=== PATIENT | male | born 1970 | race Caucasian/White ===

== ENCOUNTER 2025-01-20 09:47 | Day surgery (SDC) | payer BC ==
[~2025-01-20] VITALS: Ht 182.9 cm; Wt 105.1 kg
[~2025-01-20 09:47] MED LIST: LISI1TAB53 PO; Metoprolol PO; SULF500T PO
[2025-01-20] MEDS ORDERED: METO100T7 PO (10:12)
[2025-01-20] MEDS ORDERED: FENO145T26 PO (10:12)
[2025-01-20] MEDS ORDERED: HYDR25TA5 PO (10:12)
[2025-01-20] MEDS ORDERED: fentaNYL/PF 50MCG/1 ML 2ML syringe IV ONE (10:15)
[2025-01-20] MEDS ORDERED: MIDAZolam 1mg/ml 10ml vial IV ONE (10:15)
[2025-01-20] MEDS ORDERED: normal saline 1000ml 1,000 ML IV SCH (10:15)
[2025-01-20 10:26] VITALS: BP 114/69; PULSE 73; RESP 15; TEMP 98.1; O2SAT 95
[2025-01-20] MEDS ORDERED: midazolam 1 mg/ML 2ml injection ONE ×2 (11:16→12:08)
[2025-01-20] MEDS ORDERED: fentaNYL/PF 50MCG/1 ML 2ML syringe ONE (11:16)
[2025-01-20 11:30] VITALS: RESP 16; O2SAT 97
[2025-01-20 12:26] VITALS: BP 124/70; PULSE 73; RESP 12; O2SAT 97
[2025-01-20 12:30] VITALS: BP 130/81; PULSE 72; RESP 17; O2SAT 95
[2025-01-20 12:45] VITALS: BP 122/71; PULSE 71; RESP 14; O2SAT 96
[2025-01-20 12:58] VITALS: BP 122/75; PULSE 69; RESP 14; O2SAT 96
--- NOTE | 2025-01-20 18:57 | CARDIOLOGY REPORT ---
APPROVED REPORT EXAM: Focused, limited transesophageal echocardiogram with color flow Doppler. Saline study for shunt. 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 flow nearAV ? VSDvsECC AI LEFT VENTRICLE Normal LV size and function. Mild concentric hypertrophy. No membraneous or muscular VSD detected by 2D, color or saline study. LVEF is 60%. RIGHT VENTRICLE RV is normal size and function. ATRIA Left atrium appears ? mildly dilated. Saline study was performed with 2 IV injections of 10 ccs of agitated normal saline at rest. Negative saline study for right to left flow. AORTIC VALVE Trileaflet AV appears mildly sclerotic without stenosis or insufficiency. MITRAL VALVE Grossly normal MV without obvious stenosis. Trace regurgitation. Mitral valve was not evaluated during focused exam. TRICUSPID VALVE TV appears grossly structurally normal with trace regurgitation. Tricuspid valve was not evaluated during focused exam. PULMONIC VALVE Normal PV without obvious stenosis, physiologic insufficiency. GREAT VESSELS Aortic root is normal in size. Ascending aorta is normal in size. PERICARDIUM Normal pericardium. No effusion. CONCLUSION Normal LV size and function. Mild concentric hypertrophy. No membraneous or muscular VSD detected by 2D, color or saline study. LVEF is 60%. RV is normal size and function. Left atrium appears ? mildly dilated. Saline study was performed with 2 IV injections of 10 ccs of agitated normal saline at rest. Negative saline study for right to left flow. Trileaflet AV appears mildly sclerotic without stenosis or insufficiency. Grossly normal MV without obvious stenosis. Trace regurgitation. Mitral valve was not evaluated during focused exam. TV appears grossly structurally normal with trace regurgitation. Tricuspid valve was not evaluated during focused exam. Normal pericardium. No effusion. Conclusion Normal LV size and function. Mild concentric hypertrophy. No membraneous or muscular VSD detected by 2D, color or saline study. LVEF is 60%. RV is normal size and function. Left atrium appears ? mildly dilated. Saline study was performed with 2 IV injections of 10 ccs of agitated normal saline at rest. Negative saline study for right to left flow. Trileaflet AV appears mildly sclerotic without stenosis or insufficiency. Grossly normal MV without obvious stenosis. Trace regurgitation. Mitral valve was not evaluated during focused exam. TV appears grossly structurally normal with trace regurgitation. Tricuspid valve was not evaluated during focused exam. Normal pericardium. No effusion.
== END 2025-01-20 13:00 | disposition home or self-care (01) ==
LOC: SSTAY O 09:47 → EDSTATUS 14:00
PROVIDERS: ATTEND Student in an Organized Health Care Education/Training Program
DX: I51.0 Cardiac septal defect, acquired (principal); R53.83 Other fatigue; R06.02 Shortness of breath; I11.9 Hypertensive heart disease without heart failure; E78.00 Pure hypercholesterolemia, unspecified; K21.9 Gastro-esophageal reflux disease without esophagitis; Z79.899 Other long term (current) drug therapy; Z88.6 Allergy status to analgesic agent
CPT/HCPCS: 93312; 93325; 99152; J2250; J3010; J7030